=== PATIENT | female | born 1950 | race Caucasian/White ===

== ENCOUNTER 2016-08-03 07:04 | Day surgery (SDC) | payer OTHER, MEDICARE ==
[2016-07-22 09:35] VITALS: BMI 20.9
[2016-08-03] MEDS ORDERED: LIDOCAINE HCL 2% (20ML MULTI-DOSE VIAL) NR ONE (07:15)
[2016-08-03] MEDS ORDERED: MIDAZOLAM HCL 2 MG/2 ML SINGLE DOSE VIAL ONE (08:18)
[2016-08-03] MEDS ORDERED: PROPOFOL 20 ML ONE (08:28)
[2016-08-03] MEDS ORDERED: ceFAZolin SODIUM 1 GM VIAL ONE (08:33)
[2016-08-03 09:30] VITALS: PULSE 65
[2016-08-03 09:42] VITALS: BP 112/67; TEMP 98
--- NOTE | 2016-08-04 09:13 | OP ---
DATE OF OPERATION: 08/03/2016 PREOPERATIVE DIAGNOSIS: Right ring trigger-finger. POSTOPERATIVE DIAGNOSIS: Right ring trigger-finger. OPERATIVE PROCEDURE: Right ring trigger-finger release. SURGEON: Maurizio Sam MD ANESTHESIA: Local with sedation. COMPLICATIONS: None. ESTIMATED BLOOD LOSS: Minimal. INDICATIONS FOR PROCEDURE: The patient is a 65-year-old female with the above findings indicated for operative treatment. The risks, benefits, and alternatives were again discussed with the patient at length, and proper informed consent was obtained. PROCEDURE: After proper identification of the patient and the correct operative site, the patient was brought to the operating room and placed supine on the operating room table. All bony prominences were well padded. Sedation was given by the anesthesiologist; local anesthesia was given with 2% lidocaine. Right upper extremity was prepped and draped in the usual sterile fashion. A well-padded tourniquet was placed with a sterile prep. Esmarch bandage used to exsanguinate the right upper extremity. A tourniquet was inflated to 250 mmHg. A longitudinal incision was made over A1 peter to the ring finger. Incision was taken sharply through the skin with blunt and sharp dissection through subcutaneous tissues. A1 peter was identified and divided longitudinal. The patient was asked to flex and extend her fingers, and no further triggering was noted. Flexor tendons were normal in appearance. Wound was irrigated with saline and repaired with a 5-0 nylon suture. Sterile dressings were applied. Patient was reversed from sedation and brought to the recovery room in stable condition. She tolerated the procedure well. Luc [id number]
== END 2016-08-03 10:25 | disposition home or self-care (01) ==
LOC: FASU 07:04
PROVIDERS: ATTEND Orthopaedic Surgery Hand Surgery
PROC: 0LN70ZZ Release Right Hand Tendon, Open Approach (ICD-10-PCS; principal; 2016-08-03 08:47)
DX: M65.341 Trigger finger, right ring finger (principal)